=== PATIENT | female | born 1995 | race Caucasian/White ===

== ENCOUNTER 2016-05-04 11:31 | Emergency (ER) | payer OTHER | END 2016-05-04 12:45 | disposition home or self-care (01) | LOC: ER 11:31 | DX: B35.9 Dermatophytosis, unspecified (principal); L30.9 Dermatitis, unspecified; F17.210 Nicotine dependence, cigarettes, uncomplicated ==

== ENCOUNTER 2016-05-23 08:24 | Emergency (ER) | payer OTHER | END 2016-05-23 08:44 | disposition home or self-care (01) | LOC: ER 08:24 | DX: B30.9 Viral conjunctivitis, unspecified (principal); F17.210 Nicotine dependence, cigarettes, uncomplicated ==